=== PATIENT | male | born 1990 | race Caucasian/White ===

== ENCOUNTER 2021-07-03 22:59 | Emergency (ER) | payer OTHER | END 2021-07-03 23:54 | disposition home or self-care (01) | LOC: ED 22:59 | DX: K02.9 Dental caries, unspecified (principal) ==

== ENCOUNTER 2024-02-19 02:30 | Emergency (ER) | payer OTHER ==
[~2024-02-19] VITALS: Ht 177.8 cm; Wt 92.1 kg
[2024-02-19] MEDS ORDERED: Pantoprazole Sodium 20 MG TAB PO ONE ×2 (02:55)
[2024-02-19] MEDS ORDERED: OMEPRAZOLE40 MG PO (02:57)
== END 2024-02-19 03:17 | disposition home or self-care (01) ==
LOC: ED 02:30
DX: K29.60 Other gastritis without bleeding (principal); F41.1 Generalized anxiety disorder; L03.115 Cellulitis of right lower limb

== ENCOUNTER 2025-01-14 15:44 | Emergency (ER) | payer OTHER ==
[~2025-01-14] VITALS: Ht 177.8 cm; Wt 90.3 kg
[~2025-01-14 15:44] MED LIST: OMEPRAZOLE40 MG PO
[2025-01-14 16:51] LABS: BILIRUBIN Negative (Negative); BLOOD Negative (Negative); CLARITY Clear (Clear); COLOR Yellow (Yellow); GLUCOSE Negative (Negative); KETONE Negative (Negative); LEUKO ESTERASE Negative (Negative); NITRITE Negative (Negative); PH 5.5 (4.5-8.0); SPECIFIC GRAVITY 1.015 (1.001-1.030)
[2025-01-14 16:59] LABS: EPITHELIAL CELLS 0-2; MUCOUS TRACE; WBC 0-2 wbc/hpf (0-5)
== END 2025-01-14 17:14 | disposition home or self-care (01) ==
LOC: ED 15:44
PROVIDERS: Emergency Medicine
DX: R35.0 Frequency of micturition (principal); J02.9 Acute pharyngitis, unspecified; R53.83 Other fatigue; Z88.1 Allergy status to other antibiotic agents; Z88.2 Allergy status to sulfonamides; Z79.899 Other long term (current) drug therapy